=== PATIENT | male | born 1980 | race Caucasian/White ===

== ENCOUNTER 2017-03-16 16:03 | Emergency (ER) | payer OTHER ==
[2017-03-16 16:31] VITALS: BP 128/69
[2017-03-16] MEDS ORDERED: Tetan/Diph/Pertus SYR(Tdap)* 0.5 ML SYR(BOOSTRIX) use SYR IM ONE (17:32)
--- NOTE | 2017-03-16 18:12 | UC ---
Laceration HPI - HPI Summary HPI Summary: LACERATION TO TOP OF SCALP WHILE LOADING HORSE INTO TRAILER. MAY HAVE BEEN SOMETHING ON HORSE'S BRIDLE. NO LOC. NO NECK PAIN. NO FACIAL PAIN. NO CHANGES IN VISION. NO N/V. OR BRUISING - History Of Current Complaint Chief Complaint: UCHeadInjury Stated Complaint: HEAD INJURY Time Seen by Provider: 03/16/17 17:16 Hx Obtained From: Patient Laceration Location: Head - LEFT SCALP Mechanism Of Injury: Blunt Trauma Onset/Duration: Sudden Onset Severity: Mild - Allergies/Home Medications Allergies/Adverse Reactions: Allergies Allergy/AdvReac Type Severity Reaction Status Date / Time No Known Allergies Allergy Verified 01/08/15 17:45 PMH/Surg Hx/FS Hx/Imm Hx Previously Healthy: Yes - Surgical History Surgical History: None - Family History Known Family History: Negative: Seizure Disorder - Social History Occupation: Employed Full-time Lives: With Family Alcohol Use: Occasionally Substance Use Type: None Smoking Status (MU): Never Smoked Tobacco - Immunization History Most Recent Tetanus Shot: 2000 Review of Systems Constitutional: Negative Skin: Other - LACERATION LEFT SCALP Eyes: Negative ENT: Negative Respiratory: Negative Cardiovascular: Negative Gastrointestinal: Negative Genitourinary: Negative Motor: Negative Neurovascular: Negative Musculoskeletal: Negative Neurological: Negative Psychological: Negative Is Patient Immunocompromised?: No All Other Systems Reviewed And Are Negative: Yes Physical Exam Triage Information Reviewed: Yes Appearance: Well-Appearing, No Pain Distress, Well-Nourished Vital Signs: Initial Vital Signs Temp 98.2 F 03/16/17 16:26 Pulse 80 03/16/17 16:26 Resp 18 03/16/17 16:26 BP 128/69 03/16/17 16:26 Pulse Ox 98 03/16/17 16:26 Vital Signs Reviewed: Yes Eye Exam: Normal ENT Exam: Normal ENT: Positive: Normal ENT inspection, TMs normal Dental Exam: Normal Neck exam: Normal Neck: Positive: Supple, Nontender, No Lymphadenopathy Respiratory Exam: Normal Respiratory: Positive: Chest non-tender, Lungs clear, Normal breath sounds Cardiovascular Exam: Normal Cardiovascular: Positive: RRR, No Murmur Abdominal Exam: Normal Musculoskeletal Exam: Normal Neurological Exam: Normal Psychological Exam: Normal Skin: Positive: Other - LACERATION LEFT SCALP Laceration Repair - Laceration Repair 1 Description: Irregular Laceration Size After Repair: Length (cm) - 2, Width (mm) - 3, Depth (mm) - 4 Closure Material: Khari - #3 Suture Of: Skin Laceration Course/Dx - Differential Dx - Laceration/Wound Differental Diagnoses: Laceration Provider Diagnoses: LACERATION LEFT SCALP WITH STAPLE REPAIR Discharge - Discharge Plan Condition: Stable Disposition: HOME Patient Education Materials: Laceration (ED), Staple Care (ED) Referrals: [facility] [place] [facility] [Outside] No Primary Care Phys,NOPCP [Primary Care Provider] -
== END 2017-03-16 18:12 | disposition home or self-care (01) ==
LOC: UCEAST 16:03
DX: S01.01XA Laceration without foreign body of scalp, initial encounter (principal); W22.8XXA Striking against or struck by other objects, initial encounter; Y93.9 Activity, unspecified; Y92.9 Unspecified place or not applicable; Y99.9 Unspecified external cause status
CPT/HCPCS: 12032; 90471; 90715; 99211; G0463

== ENCOUNTER 2017-03-21 15:59 | Emergency (ER) | payer OTHER ==
[2017-03-21 17:03] VITALS: BP 145/62
--- NOTE | 2017-03-21 17:51 | UC ---
Laceration HPI - HPI Summary HPI Summary: This is a 36 yo male who presents for staple removal from his scalp. [place] were placed 03/16. Patient denies severe pain, drainage from the site or fever. - History Of Current Complaint Chief Complaint: UCSkin Stated Complaint: STAPLE REMOVAL - Allergies/Home Medications Allergies/Adverse Reactions: Allergies Allergy/AdvReac Type Severity Reaction Status Date / Time No Known Allergies Allergy Verified 03/21/17 17:03 PMH/Surg Hx/FS Hx/Imm Hx Previously Healthy: Yes - Surgical History Surgical History: None - Family History Known Family History: Positive: None Negative: Seizure Disorder - Social History Alcohol Use: Occasionally Substance Use Type: None Smoking Status (MU): Never Smoked Tobacco - Immunization History Most Recent Tetanus Shot: 2000 Review of Systems Constitutional: Negative Skin: Negative Eyes: Negative ENT: Negative Respiratory: Negative Cardiovascular: Negative Gastrointestinal: Negative Genitourinary: Negative Motor: Negative Neurovascular: Negative Musculoskeletal: Negative Neurological: Negative Psychological: Negative Is Patient Immunocompromised?: No All Other Systems Reviewed And Are Negative: Yes Physical Exam Triage Information Reviewed: Yes Appearance: Well-Appearing Vital Signs: Initial Vital Signs Temp 99.0 F 03/21/17 17:00 Pulse 74 03/21/17 17:00 Resp 18 03/21/17 17:00 BP 145/62 03/21/17 17:00 Pulse Ox 98 03/21/17 17:00 Vital Signs Reviewed: Yes ENT: Positive: Normal ENT inspection Neck exam: Normal Neck: Positive: Supple, Nontender Respiratory: Positive: Chest non-tender, Lungs clear Cardiovascular: Positive: RRR, No Murmur Abdomen Description: Positive: Nontender Musculoskeletal: Positive: Strength Intact Neurological Exam: Normal Psychological Exam: Normal Skin: Positive: Other - healing laceration over his scalp with [address] Laceration Course/Dx - Course/Dx Course Of Treatment: 3 dorothy successfully removed from scalp without complication - Differential Dx - Laceration/Wound Differental Diagnoses: Cellulitis, Hematoma, Laceration Provider Diagnoses: 1. Staple removal Discharge - Discharge Plan Condition: Stable Disposition: HOME Referrals: No Primary Care Phys,NOPCP [Primary Care Provider] - Additional Instructions: Instructions: 1. Your dorothy were successfully removed, the wound is healing well 2. You require no further follow up at this time
== END 2017-03-21 17:47 | disposition home or self-care (01) ==
LOC: UCEAST 15:59
DX: Z48.02 Encounter for removal of sutures (principal)

== ENCOUNTER 2018-09-27 10:43 | Emergency (ER) | payer OTHER ==
--- NOTE | 2018-09-27 11:29 | UC ---
Minor Trauma HPI - HPI Summary HPI Summary: CHIEF COMPLAINT and HPI: This is a HEALTHY 38-YEAR-OLD WHO WAS KICKED BY HORSE. This condition began shortly before arrival in the urgent care center. The injury is located mid femur on the right. There is also a 3.0 cm laceration to this area. The area is swollen and painful. The patient also complains of pain in the right knee, but he can bend the knee . Medications & Allergies Reviewed. Nurses Note Reviewed. "PT WAS KICKED BUY A HORSE 1 HOUR AGO, PUNCTURE TYPE WOUND TO LATERAL RIGHT MID THIGH, PAIN IN RIGHT KNEE " Hypertension status reviewed. No antihypertensive medications. Visit History Reviewed. Chronic conditions and problem list reviewed. Information contributory to present complaint: kicked by horse twice before. Up to date on tetanus. - History of Current Complaint Stated Complaint: RT LEG INJURY Time Seen by Provider: 09/27/18 10:54 - Allergies/Home Medications Allergies/Adverse Reactions: Allergies Allergy/AdvReac Type Severity Reaction Status Date / Time No Known Allergies Allergy Verified 09/27/18 11:31 PMH/Surg Hx/FS Hx/Imm Hx - Additional Past Medical History Additional PMH: PAST MEDICAL HISTORY: 3 previous kicks by horse; one in head. 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 Negative: Shortness Of Breath Cardiovascular: Positive: Negative. Negative: Palpitations Gastrointestinal: Positive: Negative. Negative: Abdominal Pain Musculoskeletal: Positive: Negative, Edema - right thigh Neurological: Positive: Negative Physical Exam - Summary Physical Exam Summary: Appearance: The patient is well-appearing, is in no pain or distress, and is well-nourished. Eyes: Conjunctiva are clear. Pupils are equal and reactive to light and accommodation. Extra ocular muscle movement is intact. ENT: The hearing is grossly normal, the pharynx is normal, and the TMs are normal. There is no muffled or hoarse voice. No stridor. Neck: The neck is supple and there is no lymphadenopathy. Respiratory: The chest is nontender to palpation and without crepitus. The lungs are clear, there are normal breath sounds, and there is no respiratory distress. No wheezes, rales or rhonchi. Cardiovascular: Heart sounds reveal a regular rate and rhythm. There are no clicks, rubs or murmurs. There are no carotid bruits or thrills. Circulation is grossly intact. Abdomen: The abdomen is soft and nontender. There is no organomegaly. Bowel sounds are present and within normal limits. No point tenderness at McBurneys point. Musculoskeletal: Strength is intact. The patient moves all extremities. Examination of the right thigh shows moderate swelling approximately mid thigh with a 3.0 cm losing and gaping laceration below it. The actual contusion is slightly above the laceration and there is mild ecchymosis. Examination of the knee shows full range of motion movement and no point tenderness or laxity. X- ray of the femur was negative for fracture and as much of of the knee that could be seen appeared to be free of injury. Neurological: The patient is alert. Motor and sensory are examination grossly intact. Speech is normal. Psychological: The patient displays age appropriate behavior Skin: Negative for rashes. PROCEDURE NOTE: There is a 3 cm laceration on the lateral distal aspect of the right thigh. The area was irrigated with more than 100 cc of normal saline under pressure. The wound was losing what appeared to be dark red blood. The wound was cleaned, prepped, and draped in the usual sterile fashion, and 10 cc of 2% lidocaine with epinephrine was injected. This created good hemostasis. The wound edges were then approximated using 3 vertical mattress sutures using 4 -0 Ethilon. This created full hemostasis with 3 sutures. There were no foreign bodies in the wound and no subcutaneous sutures placed. The wound edges did require minor debridement. The area was then re-cleaned and the nurse placed a dressing that was nonadherent as well as an Jese wrap. The patient was instructed to elevate the extremity and watch for any swelling consistent with a retained overgrowing hematoma underneath the skin. He was also given wound instructions with respect to infection. Triage Information Reviewed: Yes Vital Signs Reviewed: Yes Minor Trauma Course/Dx - Course Course Of Treatment: MEDICAL DECISION MAKING & PLAN: This is a HEALTHY 38-YEAR-OLD WHO WAS KICKED BY HORSE. This condition began shortly before arrival in the urgent care center. The injury is located mid femur on the right. There is also a 3.0 cm laceration to this area. The area is swollen and painful. The patient also complains of pain in the right knee, but he can bend the knee . Examination of the knee was unremarkable with the exception of mild tenderness with flexion. There is no point tenderness over the bones. There is no laxity. The 3.0 cm laceration was sutured in the usual fashion using 3 Ethilon sutures and 3 vertical mattress sutures. There was good hemostasis and approximation of the elevated wound edges. It was also noted that the patient was hypertensive. There is a family history of hypertension. The patient will clean the wound daily, and sutures will come out in 10 days. Medications & Allergies Reviewed. x ray reading: NO ACUTE OSSEOUS INJURY. IF SYMPTOMS PERSIST, RECOMMEND REPEAT IMAGING. MEDICATIONS REVIEWED: Medications have been included in the original chart and reviewed. HYPERTENSION STATUS REVIEWED. 137/69 HTN NOTED: Hypertensive BP reading of137/69; follow up with PCP within 4 weeks to recheck blood pressure has been recommended to patient. Patient voices understanding. - Differential Dx/Diagnosis Differential Diagnosis/HQI/PQRI: Abrasion(s), Fracture, Laceration(s) Provider Diagnosis: Contusion, Laceration Discharge - Sign-Out/Discharge Documenting (check all that apply): Patient Departure All imaging exams completed and their final reports reviewed: Yes - Discharge Plan Condition: Stable Disposition: HOME Patient Education Materials: Laceration (DC) Referrals: No Primary Care Phys,NOPCP [Primary Care Provider] - Additional Instructions: WE DISCUSSED: PLEASE SEEK CARE AT THE EMERGENCY DEPARTMENT IF SYMPTOMS WORSEN OR IF NEW SYMPTOMS DEVELOP. FOLLOW UP WITH YOUR PRIMARY CARE PHYSICIAN IF CONDITION CONTINUES BEYOND 3 DAYS WITHOUT IMPROVEMENT. We are open from 7 a.m. to 10 p.m. Call us with any questions or concerns. YOUR DIAGNOSIS IS: laceration and contusion of your right thigh YOUR PRESCRIPTION RECOMMENDATION IS: none OTHER INSTRUCTIONS: Elevated blood pressure today; see instructions below. Sutures out in 10 days. If blood underneath the skin starts to swell, recheck your wound. If you have any increased pain or disability, recheck at any time. Also look for any signs of infection: swelling, redness, red lines, tendernes , that is increasing. Use crutches if it's painful to walk. Elevate the leg when sitting or lying down. Hypertension Discharge Instructions: Your blood pressure reading today was 137/69, indicating HYPERTENSION. Follow- up with your primary care provider within 4 weeks for blood pressure check and appropriate recommendations and treatment, as needed. For pain: Ibuprofen (Motrin and other brand names) 400-600mg PLUS acetaminophen (Tylenol and other brand names) 500mg - 1000mg every 8 hours. Maximum is 3 doses a day. If this dosage is required for more than 5 days, you should re-check with your doctor. The combination of these two over-the- counter medications can be more effective than each one taken alone. Please check with the pharmacist if you have questions about your allergies to these medications. To help you sleep: If you feel as if you want to calm down and get sleepy, over the counter diphenhydramine (Benadryl and other brand names), 25 mg up to every 8 hours may be useful. Please check with the pharmacist if you have questions about your allergies to these medications. Please check with the pharmacist if you have questions about your allergies to these medications. - Billing Disposition and Condition Condition: STABLE Disposition: Home
[2018-09-27 11:39] VITALS: BP 137/69
[2018-09-27] MEDS ORDERED: Lidocaine 2% W/EPI 1:100,000* 20 ML MDV INJ ONE (12:18)
== END 2018-09-27 12:56 | disposition home or self-care (01) ==
LOC: UCEAST 10:43
DX: S71.112A Laceration without foreign body, left thigh, initial encounter (principal); W55.12XA Struck by horse, initial encounter; Y92.9 Unspecified place or not applicable
CPT/HCPCS: 12032; 99211; G0463

== ENCOUNTER 2019-06-02 08:55 | Emergency (ER) | payer BC, OTHER ==
[2019-06-02 09:06] VITALS: BP 136/84
--- NOTE | 2019-06-02 09:54 | UC ---
Dental HPI - HPI Summary HPI Summary: 38 yo male presents with dental pain. He tells me that for the last 3-4 days he has noticed left lower jaw pain and swelling worsening last night. Hurt to chew on that side. Noticed that his lower left wisdom tooth gum area looked swollen and red. Has not had an issue with this in the past. Denies fever or chills - History of Current Complaint Chief Complaint: UCDentalProblem Stated Complaint: dental pain Time Seen by Provider: 06/02/19 09:54 Hx Obtained From: Patient Onset/Duration: Gradual Onset Severity: Moderate Pain Intensity: 7 Pain Scale Used: 0-10 Numeric - Allergies/Home Medications Allergies/Adverse Reactions: Allergies Allergy/AdvReac Type Severity Reaction Status Date / Time No Known Allergies Allergy Verified 09/27/18 11:31 PMH/Surg Hx/FS Hx/Imm Hx - Additional Past Medical History Additional PMH: None - Surgical History Surgical History: Yes Surgery Procedure, Year, and Place: tonsils - Family History Known Family History: Positive: None Negative: Seizure Disorder - Social History Occupation: Employed Full-time Lives: With Family Alcohol Use: Occasionally Substance Use Type: None Smoking Status (MU): Never Smoked Tobacco - Immunization History Most Recent Tetanus Shot: 2000 Review of Systems All Other Systems Reviewed And Are Negative: No Constitutional: Positive: Negative Skin: Positive: Negative Eyes: Positive: Negative ENT: Positive: Dental Pain Respiratory: Positive: Negative Cardiovascular: Positive: Negative Neurological: Positive: Negative Psychological: Positive: Negative Physical Exam - Summary Physical Exam Summary: GENERAL: NAD. WDWN. No pain distress. SKIN: No rashes, sores, lesions, or open wounds. HEENT: Head: AT/NC Nose: Nasal mucosa pink and moist. NTTP maxillary and frontal sinus. Throat: Posterior oropharynx without exudates, erythema, or tonsillar enlargement. Uvula midline. NECK: Supple. Nontender. No lymphadenopathy. CHEST: No accessory muscle use. Breathing comfortably and in no distress. NEURO: Alert. PSYCH: Age appropriate behavior. Triage Information Reviewed: Yes Vital Signs: Initial Vital Signs Temp 98.6 F 06/02/19 09:03 Pulse 86 06/02/19 09:03 Resp 15 06/02/19 09:03 BP 136/84 06/02/19 09:03 Pulse Ox 98 12/31/19 09:03 Vital Signs Reviewed: Yes Dental: Positive: Percussion Tenderness @ - Tooth #17, Abscess @ - Tooth #17, Cellulitis @ - Tooth #17. Negative: Gross Decay/Caries @, Dental Fracture @, Cervical Lymphadenopathy, Bleeding Dental Complaint Course/Dx - Course Course Of Treatment: Tooth #17 abscess - Differential Dx/Diagnosis Provider Diagnosis: Dental abscess Discharge ED - Sign-Out/Discharge Documenting (check all that apply): Patient Departure All imaging exams completed and their final reports reviewed: No Studies - Discharge Plan Condition: Stable Disposition: HOME Prescriptions: Amoxicillin PO (*) [Amoxicillin 500 MG CAP*] 500 mg PO Q12H #14 cap Patient Education Materials: Dental Abscess (ED) Referrals: No Primary Care Phys,NOPCP [Primary Care Provider] - Additional Instructions: If you develop a fever, shortness of breath, chest pain, new or worsening symptoms - please call your PCP or go to the ED immediately. - Billing Disposition and Condition Condition: STABLE Disposition: Home
== END 2019-06-02 10:00 | disposition home or self-care (01) ==
LOC: UCEAST 08:55
DX: K04.7 Periapical abscess without sinus (principal)
CPT/HCPCS: 99212; G0463